=== PATIENT | male | born 1995 | race Caucasian/White ===

== ENCOUNTER 2020-11-06 18:20 | Emergency (ER) | payer OTHER ==
[~2020-11-06] VITALS: Ht 193 cm; Wt 125.0 kg
[2020-11-06] MEDS ORDERED: fentaNYL INJ 100 MCG/2 ML AMP IVP STA (18:25)
[2020-11-06] MEDS ORDERED: LACTATED RINGERS 1,000 ML IV ONE ×3 (18:30→19:03)
[2020-11-06] MEDS ORDERED: TETANUS,DIPTH,PERTUSS P/F (BOOSTRIX) 0.5 ML VIAL IM ONE (18:30)
[2020-11-06 18:40] LABS: BASOPHILS # (AUTO) 0.1 10^3/uL (0.0-0.1); BASOPHILS % (AUTO) 1 % (0-10); EOSINOPHILS # (AUTO) 0.1 10^3/uL (0.0-0.3); EOSINOPHILS % (AUTO) 1 % (0-10); HEMATOCRIT 45 % (40-54); HEMOGLOBIN 15.2 g/dL (13.3-17.7); LYMPHOCYTES # (AUTO) 3.7 10^3/uL (1.0-4.0); LYMPHOCYTES % (AUTO) 32 % (12-44); MEAN CORPUSCULAR HEMOGLOBIN 31 pg (25-34); MEAN CORPUSCULAR HGB CONC 34 g/dL (32-36); MEAN CORPUSCULAR VOLUME 92 fL (80-99); MEAN PLATELET VOLUME 9.8 fL (9.0-12.2); MONOCYTES # (AUTO) 0.9 10^3/uL (0.0-1.0); MONOCYTES % (AUTO) 8 % (0-12); NEUTROPHILS # (AUTO) 6.6 10^3/uL (1.8-7.8); NEUTROPHILS % (AUTO) 58 % (42-75); PLATELET COUNT 241 10^3/uL (130-400); WHITE BLOOD COUNT 11.4 10^3/uL (4.3-11.0)
[2020-11-06 18:48] LABS: ALBUMIN 4.6 GM/DL (3.2-4.5); CHLORIDE 101 MMOL/L (98-107); POTASSIUM 3.3 MMOL/L (3.6-5.0); SODIUM 140 MMOL/L (135-145)
[2020-11-06 18:49] LABS: CALCIUM 9.3 MG/DL (8.5-10.1)
[2020-11-06 18:50] LABS: GLUCOSE 108 MG/DL (70-105); TOTAL PROTEIN 8.1 GM/DL (6.4-8.2)
[2020-11-06 18:51] LABS: CARBON DIOXIDE 26 MMOL/L (21-32)
[2020-11-06 18:52] LABS: BILIRUBIN,TOTAL 0.6 MG/DL (0.1-1.0)
[2020-11-06 18:54] LABS: ALKALINE PHOSPHATASE 89 U/L (40-136); CREATININE SERUM 1.47 MG/DL (0.60-1.30); GFR ESTIMATED 59
[2020-11-06 18:55] LABS: BUN/CREATININE RATIO 8
[2020-11-06 18:57] LABS: ALANINE AMINOTRANSFERASE 48 U/L (0-55)
[2020-11-06] MEDS ORDERED: morphine INJ 10 MG/ML 1ML (SYR OR VIAL) IVP STA ×2 (18:59→20:17)
[2020-11-06] MEDS ORDERED: morphine INJ 10 MG/ML 1ML (SYR OR VIAL) ONE (19:03)
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
[2020-11-06] MEDS: KETAMINE HCL 100 MG/ML 5 ML VIAL IV ONE (19:43)
[2020-11-06] MEDS ORDERED: LORazepam INJ 2 MG/ML (ATIVAN) VIAL IVP ONE (20:15)
[2020-11-06 20:45] VITALS: BP 153/96
== END 2020-11-06 20:46 | disposition short-term general hospital (02) ==
LOC: ER 18:23
DX: T22.00XA Burn of unspecified degree of shoulder and upper limb, except wrist and hand, unspecified site, initial encounter (principal); T24.002A Burn of unspecified degree of unspecified site of left lower limb, except ankle and foot, initial encounter; T24.001A Burn of unspecified degree of unspecified site of right lower limb, except ankle and foot, initial encounter; T20.07XA Burn of unspecified degree of neck, initial encounter; T20.011A Burn of unspecified degree of right ear [any part, except ear drum], initial encounter; Z23 Encounter for immunization; X04.XXXA Exposure to ignition of highly flammable material, initial encounter
CPT/HCPCS: 80053; 85025; 90471; 93041; 96374; 96375; 96376; 99285; G0480; 36415; 80320; 90715